=== PATIENT | male | born 1995 | race Caucasian/White ===

== ENCOUNTER 2022-01-15 04:20 | Emergency (ER) | payer OTHER ==
[~2022-01-15] VITALS: Ht 175.3 cm; Wt 88.5 kg
--- NOTE | 2022-01-15 04:49 | NUR ---
pt ambulated to room 5a c/o abdominal pain.
[2022-01-15] MEDS ORDERED: ONDANSETRON 4 MG/2 ML VIAL IV ONE (05:00)
[2022-01-15] MEDS ORDERED: IV NORMAL SALINE 1000 ML BAG IV ONE (05:00)
[2022-01-15] MEDS ORDERED: KETOROLAC TROMETHAMINE 15 MG INJ IVP ONE (05:00)
[2022-01-15] MEDS ORDERED: ONDANSETRON 4 MG/2 ML VIAL ONE (05:02)
[2022-01-15] MEDS ORDERED: KETOROLAC TROMETHAMINE 15 MG INJ ONE (05:02)
--- NOTE | 2022-01-15 05:06 | NUR ---
pt taken to cat scan
[2022-01-15 05:36] LABS: HEMATOCRIT 39.8 % (36.7-47.1); MEAN CORPUSCULAR HEMOGLOBIN 30.5 uug (23.8-33.4); MEAN CORPUSCULAR VOLUME 86.6 fL (73.0-96.2); PLATELET COUNT (AUTO) 191 K/uL (152-348)
[2022-01-15 05:37] LABS: POTASSIUM 3.6 mmol/L (3.5-5.1)
[2022-01-15] MEDS ORDERED: IBUP-1955 PO (05:43)
[2022-01-15 05:46] LABS: *BILIRUBIN,URIN NEGATIVE (NEGATIVE); *BLOOD, URINE NEGATIVE (NEGATIVE); *CLARITY,URINE CLEAR (CLEAR); *COLOR,URINE YELLOW (YELLOW); *KETONES,URINE NEGATIVE (NEGATIVE); *UROBILINOGEN,URINE 0.2 E.U./dl (NORMAL); LEUKOCYTE ESTERASE ,URINE NEGATIVE (NEGATIVE); NITRITE, URINE NEGATIVE (NEGATIVE); PH,URINE 5.5 (5.0-8.0); UGLUCOSE NEGATIVE (NEGATIVE)
[2022-01-15 05:47] LABS: BILIRUBIN,DIRECT 0.1 mg/dL (0.0-0.2); BILIRUBIN,TOTAL 0.5 mg/dL (0.2-1.0); TOTAL PROTEIN, SERUM 7.1 g/dL (6.4-8.2)
[2022-01-15 06:09] VITALS: BP 105/70
--- NOTE | 2022-01-15 06:09 | NUR ---
Patient discharged to home in stable condition. Written and verbal after care instructions given. Patient verbalizes understanding of instructions. Stressed follow up or return to ER for worsening s/s.
== END 2022-01-15 06:10 | disposition home or self-care (01) ==
LOC: ER 04:26
DX: R10.31 Right lower quadrant pain (principal); E10.9 Type 1 diabetes mellitus without complications; R10.33 Periumbilical pain
CPT/HCPCS: 99284; 74176; 96374; 96375; 80076; 80048; 81003; 83690; 85025; 36415; J1885; J2405; J7040; A4663